=== PATIENT | female | born 1985 | race Caucasian/White ===

== ENCOUNTER 2019-01-25 19:03 | Inpatient (IN) | payer BC, OTHER ==
[~2019-01-25] VITALS: Ht 172.7 cm; Wt 82.6 kg
[~2019-01-25 19:03] MED LIST: GLYCOPYRROLATE 0.2 MG/ML VIAL IJ ONE; LIDOCAINE/EPI 2% 1:100000 20 ML VIAL INJ ONE; LR 1,000 ML IV.SOLN IV ONE; NEOSTIGMINE METHYLSULFATE 1 MG/ML, 10 ML VIAL IVP ONE; NS IRRIG SOLN 1000 ML IR ONE; ONDANSETRON HCL 4 MG/2 ML VIAL IVP ONE; PROPOFOL 200MG/ 20ML VIAL (DIPRIVAN) IV ONE; ROCURONIUM BROMIDE 10 MG/ML (ZEMURON) IV ONE; ROPIVACAINE HCL/PF 5 MG/ML 0.5% 30 ML VIAL INJ ONE; SEVOFLURANE 15 MIN GAS INH ONE; fentaNYL CITRATE/PF 100 MCG/2 ML AMP IVP ONE
[2019-01-25 19:29] VITALS: BP_SYST 102
[2019-01-25 20:03] LABS: BILIRUBIN,URINE NEGATIVE (NEGATIVE); BLOOD, URINE NEGATIVE (NEGATIVE); CLARITY/URINE CLEAR (CLEAR); COLOR,URINE YELLOW (YELLOW); GLUCOSE,URINE NEGATIVE (NEGATIVE); KETONES,URINE 1+ (NEGATIVE); LEUKOCYTE ESTERASE ,URINE NEGATIVE (NEGATIVE); NITRITE, URINE NEGATIVE (NEGATIVE); PROTEIN URINE NEGATIVE (NEGATIVE); UROBILINOGEN,URINE 0.2 (0.2-1.0)
[2019-01-25] MEDS ORDERED: ACETAMINOPHEN 500 MG TABLET PO ONE (20:15)
[2019-01-25 20:29] LABS: CALCIUM 8.8 mg/dL (8.4-11.0); CREATININE 0.48 mg/dL (0.55-1.30); POTASSIUM 3.4 mmol/L (3.5-5.1)
[2019-01-25 20:30] LABS: BASOPHILS % (AUTO) 0.3 % (0.0-2.0); EOSINOPHILS # (AUTO) 0.1 K/uL (0.0-0.4); EOSINOPHILS % (AUTO) 0.7 % (0.0-4.0); HEMATOCRIT 33.7 % (36-48); HEMOGLOBIN 11.2 g/dL (12.0-16.0); LYMPHOCYTES # (AUTO) 2.4 K/uL (1.0-5.5); LYMPHOCYTES % (AUTO) 17.5 % (20.5-51.5); MEAN CORPUSCULAR HEMOGLOBIN 28 pg (27-31); MEAN CORPUSCULAR HGB CONC 33 % (32-36); MEAN CORPUSCULAR VOLUME 85 fL (79.0-98.0); MONOCYTES # (AUTO) 0.5 K/uL (0.0-1.0); MONOCYTES % (AUTO) 3.5 % (1.7-9.3); NEUTROPHILS # (AUTO) 10.3 K/uL (1.8-7.7); PLATELET COUNT (AUTO) 248 K/uL (130-430); RED BLOOD CELL COUNT(AUTO) 3.96 MIL/uL (4.2-6.2); RED CELL DISTRIBUTION WIDTH 14.2 % (9.0-15.0); WHITE BLOOD COUNT (AUTO) 13.6 K/uL (4.8-10.8)
[2019-01-25 20:34] LABS: ALBUMIN 2.9 g/dL (3.4-4.8); TOTAL BILIRUBIN 0.2 mg/dL (0.0-1.0)
[2019-01-25] MEDS ORDERED: NPH,100V2 SQ (22:24)
[2019-01-25] MEDS ORDERED: PNV1TABL90 PO (22:25)
[2019-01-25] MEDS ORDERED: NACL 0.9% 1,000 ML IV SCH (22:56)
[2019-01-25] MEDS ORDERED: ONDANSETRON HCL 4 MG/2 ML VIAL IVP PRN ×2 (23:00→23:15)
[2019-01-26] MEDS ORDERED: PIPERACILLIN/TAZOBACTAM 3.375 GM/VIAL (ZOSYN) IV ONE (04:00)
[2019-01-26 05:22] VITALS: BP_SYST 98
[2019-01-26] MEDS ORDERED: PIPERACILLIN/TAZO 3.375/DEX-IS 50 ML IV SCH ×2 (06:00→06:22)
[2019-01-26] MEDS: LR 1,000 ML IV SCH ×3 (09:06→22:59)
[2019-01-26] MEDS ORDERED: ONDANSETRON HCL 4 MG/2 ML VIAL IVP PRN (12:15)
[2019-01-26] MEDS ORDERED: fentaNYL CITRATE/PF 100 MCG/2 ML AMP IVP PRN (12:15)
[2019-01-26] MEDS ORDERED: HYDROcodone/ACETAMIN 5-325 MG TAB (NORCO/ VICODIN) PO PRN (14:30)
[2019-01-26] MEDS: fentaNYL CITRATE/PF 100 MCG/2 ML AMP IVP PRN ×2 (14:30→14:44)
[2019-01-26] MEDS ORDERED: fentaNYL CITRATE/PF 100 MCG/2 ML AMP ONE (14:35)
[2019-01-26] MEDS ORDERED: INSULIN Lispro 100 UNITS/ML VIAL (humaLOG) SUBCUT PRN (14:45)
[2019-01-26 15:00] VITALS: BP_SYST 112
[2019-01-26] MEDS ORDERED: GLUCOSE 15 GM GEL (in 37.5 GM TUBE) PO PRN (15:00)
[2019-01-26] MEDS ORDERED: DEXTROSE 50%-WATER 50 ML DISP.SYRIN IVP PRN (15:00)
[2019-01-26] MEDS ORDERED: D5W 1,000 ML IV PRN (15:00)
[2019-01-26 15:08] VITALS: BP_SYST 112
[2019-01-26] MEDS: PIPERACILLIN/TAZO 3.375/DEX-IS 50 ML IV SCH ×2 (16:41→22:55)
[2019-01-26] MEDS: MORPHINE 4 MG/ML INJ. SYRINGE IVP PRN ×2 (16:58→21:39)
[2019-01-26] MEDS ORDERED: INSULIN NPH 100 UNITS/ML 10 ML VIAL SUBCUT SCH (17:00)
[2019-01-26 20:13] VITALS: BP_SYST 123
[2019-01-26] MEDS: ACETAMINOPHEN 325 MG TABLET PO PRN (20:20)
[2019-01-26] MEDS: INSULIN NPH 100 UNITS/ML 10 ML VIAL SUBCUT SCH (21:19)
[2019-01-27 00:33] VITALS: BP_SYST 120
[2019-01-27] MEDS: PIPERACILLIN/TAZO 3.375/DEX-IS 50 ML IV SCH ×3 (05:44→20:57)
[2019-01-27] MEDS: LR 1,000 ML IV SCH ×3 (07:28→20:57)
[2019-01-27 08:00] VITALS: BP_SYST 121
[2019-01-27] MEDS: PRENATAL VITS W-CA,FE,FA(<1MG) (PRENATAL) TABLET PO SCH (10:41)
[2019-01-27 12:58] VITALS: BP_SYST 115
[2019-01-27 16:39] VITALS: BP_SYST 120
[2019-01-27 20:01] VITALS: BP_SYST 119
[2019-01-27] MEDS: INSULIN NPH 100 UNITS/ML 10 ML VIAL SUBCUT SCH (21:01)
[2019-01-28] VITALS: BP_SYST 117
[2019-01-28] MEDS: ACETAMINOPHEN 325 MG TABLET PO PRN (03:30)
[2019-01-28] MEDS: LR 1,000 ML IV SCH (04:44)
[2019-01-28] MEDS: PIPERACILLIN/TAZO 3.375/DEX-IS 50 ML IV SCH (06:18)
[2019-01-28 08:05] VITALS: BP_SYST 104
[2019-01-28] MEDS: PRENATAL VITS W-CA,FE,FA(<1MG) (PRENATAL) TABLET PO SCH (08:39)
[2019-01-28 12:49] VITALS: BP_SYST 106
[2019-01-28] MEDS ORDERED: AMOX-423 PO (13:11)
[2019-01-28] MEDS ORDERED: HYDR-4272 PO (13:17)
[2019-01-28 13:41] VITALS: BP_SYST 106
== END 2019-01-28 14:40 | disposition home or self-care (01) | DRG 818 ==
LOC: SED 19:03 → SMU 22:56 → SPU 23:44 → SMU 01-26 15:36
PROVIDERS: ADMIT Obstetrics & Gynecology; ATTEND Obstetrics & Gynecology
PROC: 0DTJ4ZZ Resection of Appendix, Percutaneous Endoscopic Approach (ICD-10-PCS; 2019-01-26)
PROC: 0FT44ZZ Resection of Gallbladder, Percutaneous Endoscopic Approach (ICD-10-PCS; principal; 2019-01-26 12:00)
DX: O99.612 Diseases of the digestive system complicating pregnancy, second trimester (principal); K80.62 Calculus of gallbladder and bile duct with acute cholecystitis without obstruction; K35.80 Unspecified acute appendicitis; K66.0 Peritoneal adhesions (postprocedural) (postinfection); O26.612 Liver and biliary tract disorders in pregnancy, second trimester; O24.419 Gestational diabetes mellitus in pregnancy, unspecified control; Z3A.18 18 weeks gestation of pregnancy; Z80.49 Family history of malignant neoplasm of other genital organs
CPT/HCPCS: 36415; 76700-TC; 80053; 81003; 82948; 82962; 83690-TC; 85025; 87070-TC; 87075-TC; 88304; 99285; C1727; C1782; J1815; J2270; J2405; J2543; J2704; J2710; J3010; J3490; J7120

== ENCOUNTER 2019-06-28 23:50 | Inpatient (IN) | payer OTHER ==
[~2019-06-28] VITALS: Ht 172.7 cm; Wt 81.6 kg
[~2019-06-28 23:50] MED LIST changes: +AMOX-423 PO; -GLYCOPYRROLATE 0.2 MG/ML VIAL IJ ONE; +HYDR-4272 PO; -LIDOCAINE/EPI 2% 1:100000 20 ML VIAL INJ ONE; -LR 1,000 ML IV.SOLN IV ONE; -NEOSTIGMINE METHYLSULFATE 1 MG/ML, 10 ML VIAL IVP ONE; +NPH,100V2 SQ; -NS IRRIG SOLN 1000 ML IR ONE; -ONDANSETRON HCL 4 MG/2 ML VIAL IVP ONE; +PNV1TABL90 PO; -PROPOFOL 200MG/ 20ML VIAL (DIPRIVAN) IV ONE; -ROCURONIUM BROMIDE 10 MG/ML (ZEMURON) IV ONE; -ROPIVACAINE HCL/PF 5 MG/ML 0.5% 30 ML VIAL INJ ONE; -SEVOFLURANE 15 MIN GAS INH ONE; -fentaNYL CITRATE/PF 100 MCG/2 ML AMP IVP ONE
[2019-06-29] MEDS ORDERED: OXYTOCIN/0.9 % SODIUM CHLORIDE 1,000 ML IV SCH ×2 (00:39→15:44)
[2019-06-29] MEDS ORDERED: LR 1,000 ML IV SCH (00:39)
[2019-06-29] MEDS ORDERED: TERBUTALINE SULFATE 1 MG/ML VIAL SUBCUT ONE (00:45)
[2019-06-29] MEDS ORDERED: AMPICILLIN SODIUM 1 GM in NS 50 ML IV SCH (00:45)
[2019-06-29] MEDS ORDERED: NALBUPHINE HCL 10 MG/ML AMP IM PRN (00:45)
[2019-06-29] MEDS ORDERED: AMPICILLIN SODIUM 2 GM in NS 100 ML IV SCH (01:00)
[2019-06-29 01:28] LABS: BASOPHILS # (AUTO) 0.1 K/uL (0.0-0.2); BASOPHILS % (AUTO) 0.8 % (0.0-2.0); EOSINOPHILS # (AUTO) 0.1 K/uL (0.0-0.4); HEMATOCRIT 32.7 % (36-48); HEMOGLOBIN 11.4 g/dL (12.0-16.0); LYMPHOCYTES # (AUTO) 1.4 K/uL (1.0-5.5); LYMPHOCYTES % (AUTO) 17.7 % (20.5-51.5); MEAN CORPUSCULAR HEMOGLOBIN 30 pg (27-31); MEAN CORPUSCULAR HGB CONC 35 % (32-36); MEAN CORPUSCULAR VOLUME 86 fL (79.0-98.0); MONOCYTES # (AUTO) 0.4 K/uL (0.0-1.0); MONOCYTES % (AUTO) 5.3 % (1.7-9.3); NEUTROPHILS # (AUTO) 5.7 K/uL (1.8-7.7); NEUTROPHILS % (AUTO) 75.2 % (40.0-70.0); PLATELET COUNT (AUTO) 189 K/uL (130-430); RED BLOOD CELL COUNT(AUTO) 3.81 MIL/uL (4.2-6.2); RED CELL DISTRIBUTION WIDTH 14.5 % (9.0-15.0); WHITE BLOOD COUNT (AUTO) 7.6 K/uL (4.8-10.8)
[2019-06-29] MEDS ORDERED: AMPICILLIN SODIUM 2 GM VIAL ONE (01:29)
[2019-06-29 01:58] VITALS: BP_SYST 113
[2019-06-29] MEDS ORDERED: AMPICILLIN SODIUM 1 GM VIAL ONE ×2 (05:21→08:31)
[2019-06-29] MEDS: AMPICILLIN SODIUM 1 GM in NS 50 ML IV SCH ×2 (09:30→13:30)
[2019-06-29] MEDS ORDERED: fentaNYL CITRATE/PF 100 MCG/2 ML AMP ONE (10:36)
[2019-06-29] MEDS ORDERED: ROPIVACAINE HCL/PF 0.2% 200 ML ONE (10:36)
[2019-06-29] MEDS ORDERED: LR 500 ML IV ONE (11:25)
[2019-06-29] MEDS ORDERED: FENT2mCg/mL-ROPIVA0.2%/NS EPID 200 ML EP SCH (11:30)
[2019-06-29] MEDS ORDERED: METHYLERGONOVINE MALEATE 0.2 MG/ML AMP ONE (15:37)
[2019-06-29] MEDS ORDERED: OXYTOCIN/0.9 % SODIUM CHLORIDE 1,000 ML IV ONE (15:44)
[2019-06-29] MEDS ORDERED: HYDROcodone/ACETAMIN 5-325 MG TAB (NORCO/ VICODIN) PO PRN ×2 (15:45)
[2019-06-29] MEDS ORDERED: HYDROCORTISONE 0.5%, 28.35 GM TOPICAL CREAM TP PRN (15:45)
[2019-06-29] MEDS ORDERED: DOCUSATE SODIUM 100 MG CAPSULE PO PRN (15:45)
[2019-06-29] MEDS ORDERED: LANOLIN 7 GM OINT. TP PRN (15:45)
[2019-06-29] MEDS ORDERED: DERMOPLAST SPRAY TP PRN (15:45)
[2019-06-29] MEDS ORDERED: SENNOSIDES/DOCUSATE SODIUM 1 TAB TABLET(SENOKOT-S) PO PRN (15:45)
[2019-06-29] MEDS ORDERED: METHYLERGONOVINE MALEATE 0.2 MG TABLET PO PRN (15:45)
[2019-06-29] MEDS ORDERED: ANUSOL 1 EA SUPP.RECT (PREPARATION H) RC PRN (15:45)
[2019-06-29] MEDS ORDERED: WITCH HAZEL LEAF 1 MED.PAD MED.PAD TP PRN (15:45)
[2019-06-29] MEDS ORDERED: TEMAZEPAM 15 MG CAPSULE PO PRN (21:00)
[2019-06-30] MEDS: IBUPROFEN 600 MG TABLET PO PRN ×4 (00:40→18:16)
[2019-06-30 06:37] LABS: HEMATOCRIT 30.7 % (36-48); HEMOGLOBIN 10.6 g/dL (12.0-16.0)
[2019-07-01] MEDS: IBUPROFEN 600 MG TABLET PO PRN ×2 (02:19→06:50)
== END 2019-07-01 12:05 | disposition home or self-care (01) | DRG 807 ==
LOC: SPU 23:50
PROVIDERS: ADMIT Specialist; ATTEND Specialist
PROC: 10E0XZZ Delivery of Products of Conception, External Approach (ICD-10-PCS; principal; 2019-06-29)
PROC: 0KQM0ZZ Repair Perineum Muscle, Open Approach (ICD-10-PCS; 2019-06-29)
PROC: 3E0R3BZ Introduction of Anesthetic Agent into Spinal Canal, Percutaneous Approach (ICD-10-PCS; 2019-06-29)
PROC: 00HU33Z Insertion of Infusion Device into Spinal Canal, Percutaneous Approach (ICD-10-PCS; 2019-06-29)
DX: O99.824 Streptococcus B carrier state complicating childbirth (principal); Z37.0 Single live birth; O69.81X0 Labor and delivery complicated by cord around neck, without compression, not applicable or unspecified; O70.1 Second degree perineal laceration during delivery; O24.424 Gestational diabetes mellitus in childbirth, insulin controlled; Z3A.40 40 weeks gestation of pregnancy
CPT/HCPCS: 36415; 82962; 85018-TC; 85025; 86592; 86886; 86900; 86901; J0290; J2210; J2300; J2590; J3010; J7120

== ENCOUNTER 2019-07-03 01:09 | Emergency (ER) | payer OTHER ==
[~2019-07-03] VITALS: Ht 172.7 cm; Wt 75.7 kg
[2019-07-03 01:15] VITALS: BP_SYST 107
--- NOTE | 2019-07-03 01:15 | NUR ---
Patient triaged and placed in waiting room. VSS and patient appears in no acute distress at this time. Accompanied by FAM MEMBER, awaiting available bed, and MD notified of need for MSE.
--- NOTE | 2019-07-03 01:51 | NUR ---
Patient to ER bed 7 to gown for evaluation. Side rails up. Report given to AANSTASIYA COATES.
--- NOTE | 2019-07-03 02:00 | NUR ---
PT IS AAOX4 AND AMBULATORY. PT STATES THAT SHE HAD JUST GIVEN 4 DAYS AGO AND NOTICED SWELLING TO HER LOWER EXTREMITIES. PT STATES THAT WHILE SHE SUDDENLY GOT CHILLS. PER PT SHE DENIES ANY PAIN AT THIS TIME AND JUST WANTED TO "MAKE SURE EVERYTHING IS OKAY". PT DENIES N/V/D. WILL CONTINUE TO MONITOR PT.
--- NOTE | 2019-07-03 02:21 | NUR ---
Xray done at the bedside,pt tolerated well.
[2019-07-03 02:28] LABS: BASOPHILS # (AUTO) 0.1 K/uL (0.0-0.2); BASOPHILS % (AUTO) 0.8 % (0.0-2.0); EOSINOPHILS # (AUTO) 0.1 K/uL (0.0-0.4); EOSINOPHILS % (AUTO) 1.4 % (0.0-4.0); HEMATOCRIT 29.6 % (36-48); HEMOGLOBIN 10.2 g/dL (12.0-16.0); LYMPHOCYTES % (AUTO) 19.3 % (20.5-51.5); MEAN CORPUSCULAR HEMOGLOBIN 30 pg (27-31); MEAN CORPUSCULAR HGB CONC 35 % (32-36); MEAN CORPUSCULAR VOLUME 86 fL (79.0-98.0); MONOCYTES # (AUTO) 0.4 K/uL (0.0-1.0); MONOCYTES % (AUTO) 3.8 % (1.7-9.3); NEUTROPHILS # (AUTO) 7.8 K/uL (1.8-7.7); NEUTROPHILS % (AUTO) 74.7 % (40.0-70.0); PLATELET COUNT (AUTO) 217 K/uL (130-430); RED BLOOD CELL COUNT(AUTO) 3.43 MIL/uL (4.2-6.2); RED CELL DISTRIBUTION WIDTH 14.5 % (9.0-15.0); WHITE BLOOD COUNT (AUTO) 10.4 K/uL (4.8-10.8)
[2019-07-03 02:46] LABS: CALCIUM 8.6 mg/dL (8.4-11.0); CREATININE 0.56 mg/dL (0.55-1.30); POTASSIUM 3.9 mmol/L (3.5-5.1)
--- NOTE | 2019-07-03 02:50 | NUR ---
ER at bedside examining patient.
[2019-07-03 02:51] LABS: ALBUMIN 2.5 g/dL (3.4-4.8); TOTAL BILIRUBIN 0.3 mg/dL (0.0-1.0)
--- NOTE | 2019-07-03 03:00 | NUR ---
PT RESTING COMFORTABLY IN BED WITH EYES OPEN. NO S/S OF ACUTE DISTRESS NOTED. WILL CONTINUE TO MONITOR PT.
[2019-07-03 03:26] LABS: BILIRUBIN,URINE NEGATIVE (NEGATIVE); BLOOD, URINE 1+ (NEGATIVE); CLARITY/URINE CLEAR (CLEAR); COLOR,URINE YELLOW (YELLOW); GLUCOSE,URINE NEGATIVE (NEGATIVE); KETONES,URINE NEGATIVE (NEGATIVE); LEUKOCYTE ESTERASE ,URINE NEGATIVE (NEGATIVE); NITRITE, URINE NEGATIVE (NEGATIVE); PROTEIN URINE NEGATIVE (NEGATIVE); UROBILINOGEN,URINE 0.2 (0.2-1.0)
[2019-07-03 03:34] LABS: BACTERIA,URINE FEW /HPF (None Seen); WBC,URINE 0-3 /HPF (0-3)
[2019-07-03 04:21] VITALS: BP_SYST 105
--- NOTE | 2019-07-03 04:21 | NUR ---
Patient given written and verbal discharge instructions and verbalizes understanding. ER MD discussed with patient the results and treatment provided. Patient in stable condition. ID arm band removed. Patient educated on pain management and to follow up with PMD. Pain Scale 0/10. Opportunity for questions provided and answered. Medication side effect fact sheet provided.
== END 2019-07-03 04:21 | disposition home or self-care (01) ==
LOC: SED 01:09
DX: J06.9 Acute upper respiratory infection, unspecified (principal); R60.0 Localized edema; Z79.899 Other long term (current) drug therapy
CPT/HCPCS: 36415; 71045; 80053; 81000-TC; 83880; 84484; 85025; 99284